=== PATIENT | male | born 1965 | race Caucasian/White ===

== ENCOUNTER 2022-12-08 13:03 | Outpatient (CLI) | payer BC, SELFPAY ==
--- NOTE | 2022-12-08 13:42 | W.ANESCHARGE ---
Anesthesia Charges Start Date/Time Anesthesia Start Date: 12/08/22 Anesthesia Start Time: 14:02 Stop Date/Time Anesthesia Stop Date: 12/08/22 Anesthesia Stop Time: 14:30
--- NOTE | 2022-12-08 14:32 | W.ANESCHARGE ---
Anesthesia Charges Start Date/Time Anesthesia Start Date: 12/08/22 Anesthesia Start Time: 14:02 Stop Date/Time Anesthesia Stop Date: 12/08/22 Anesthesia Stop Time: 14:30
== END 2022-12-08 13:04 | disposition home or self-care (01) ==
LOC: OP CLINIC 13:06
PROVIDERS: PCP Family Medicine; Visit Provider Internal Medicine Gastroenterology
DX: Z12.11 Encounter for screening for malignant neoplasm of colon (principal); K63.5 Polyp of colon; K57.30 Diverticulosis of large intestine without perforation or abscess without bleeding
CPT/HCPCS: 45385; 811; 88305; J2704

== ENCOUNTER 2024-09-17 11:08 | Emergency (ER) | payer BC, SELFPAY ==
[2024-09-17 11:10] VITALS: BP 167/84; PULSE 74; RESP 18; TEMP 36.6; O2SAT 95; BMI 34.5
--- OUTSIDE RECORDS SUMMARY | 2024-09-17 11:10 | XMS_ITS | Clinical Summary ---
Author Organization [employer] [facility] Address [address] [place] [id number] Care Team Providers [facility] [employer] Paralegal Name Role Phone Danie Cooper MD Primary Care Provider Allergies Active Allergy Reactions Criticality Noted Date Comments Atorvastatin Myalgia 10/12/2015 Leg pain on 80mg, trial of 40mg Medications aspirin (ECOTRIN) 81 mg enteric coated tabletIndications: ASCVD (arteriosclerotic cardiovascular disease) Take 1 tablet by mouth once daily with a meal. 0 09/12/19 16 Active CPAPIndications:Ob structive sleep apnea CPAP, heated humidifier, mask, headgear, filters and tubing. Pressure: 9 cm/H2O Length of Need: 99 Dispense supplies needed by patient. 1 unit 0 10/03/19 16 Active cholecalciferol, Vitamin D3, 5,000 unit tab tablet Take by mouth once daily. Active lisinopriL (PRINIVIL; ZESTRIL) 10 mg tabletIndications: Essential hypertension, benign Take 1 Tablet (10 mg) by mouth once daily. 90 Tablet 1 03/31/19 25 Active metoprolol succinate (TOPROL XL) 100 mg Sustained-Release tabletIndications: Essential hypertension, benign Take 1 Tablet (100 mg) by mouth once daily. 90 Tablet 1 03/31/19 25 Active metFORMIN (GLUCOPHAGE XR) 500 mg Extended-Release tabletIndications: Type 2 diabetes mellitus with other specified complication, without long-term current use of insulin (HC) Take 2 Tablets (1,000 mg) by mouth two times daily with meals. 360 Tablet 1 04/01/19 25 Active omeprazole 40 mg Delayed-Release capsuleIndications :Chronic GERD TAKE 1 CAPSULE BY MOUTH DAILY 90 Capsule 09/17/19 25 Active rosuvastatin 40 mg tabletIndications: ASCVD (arteriosclerotic cardiovascular disease) TAKE 1 TABLET BY MOUTH ONCE DAILY 90 Tablet 09/17/19 25 Active omeprazole (PRILOSEC) 40 mg Delayed-Release capsuleIndications :Chronic GERD Take 1 Capsule (40 mg) by mouth once daily. 90 Capsule 1 03/31/19 25 025 Discontinued rosuvastatin (CRESTOR) 40 mg tabletIndications: ASCVD (arteriosclerotic cardiovascular disease) Take 1 Tablet (40 mg) by mouth once daily. 90 Tablet 1 03/31/19 25 025 Discontinued Active Problems Problem Noted Date Diagnosed Date Colon polyp 12/10/2022 Overview (12/10/2022): Colonoscopy 11/2022 7-TA, repeat in 3 years, propofol Hyperlipidemia 09/19/2022 NAFLD (nonalcoholic fatty liver disease) 023 Obesity 09/19/2022 Tobacco abuse 09/19/2022 Type 2 diabetes mellitus treated without insulin 09/19/2022 LEMUEL 03/10/2012 AHI-35 03/21/2012 Hyperplastic colon polyp 02/16/2012 Overview (02/16/2012): Colonoscopy 01/2012 polyps repeat in 10 years Essential hypertension, benign 03/16/2009 Migraines 03/16/2009 [place]o esophagus 03/16/2009 Overview (03/12/2010): EGD 02/2010 [place] Toro's, repeat EGD in 3 years CAD, [place] 2008, s/p SOLOMON. Overview (03/17/2009): -NSTEMI 03/15/2009. Coronary angiogram 03/16/2009: SOLOMON pLAD, PTCA D1. Plavix x1 year minimum, prefer 2 years Resolved Problems Problem Noted Date Diagnosed Date Resolved Date Impaired fasting glucose 01/02/2012 Vitamin D deficiency 04/21/2011 023 Rectal bleeding 11/08/2010 09/19/2022 Unspecified hemorrhoids with other complication 11/08/2010 09/19/2022 Allergic reaction caused by a drug 04/20/2009 09/19/2022 Other chest pain 03/16/2009 09/19/2022 Smoking 03/16/2009 09/19/2022 Overview (03/26/2009): Quit on 03/15/09 GI (gastrointestinal bleed) 09/19/2022 Overview (03/17/2009): -blood in stool x3 weeks on admission 03/15/2009 *GI consult recommended elective colonoscopy and UGI scope in next few weeks *now on Plavix x1 year minimum, prefer 2 years for SOLOMON placement 03/16/2009 Encounters Date Type Department Care Team Description 09/15/2024 Refill [facility] [address] [place] [address] Danie Cooper MD Refill Request (Omeprazole, Rosuvastatin) from Last 3 Months Immunizations Immunization Administration Dates Next Due COVID-19 VACCINE SPIKEVAX (M ODERNA 50MCG/0.5ML) 12YO+ PFS 03/31/2024,07/10/2023 COVID-19 vaccine ([employer] 30mcg/0.3mL) PF, MDV 08/26/2021,02/23/2021,07/09/2020,2020 INFLUENZA, IIV3 PF (AGE >= 6 MO) 03/31/2024 Influenza, IIV4 12/29/2020,,01/10/2019,2017,01/15/2015,02/14/2014 Pneumococcal Poly,23-Valent (Pneumovax) 12/29/2020 Pneumococcal conj 13-Valent (Prevnar 13) 07/01/2022 Td (Age >=7 Years) 06/29/1997 Tdap 01/17/2020,08/30/2009 Zoster (Shingrix-RZV, recombinant) 12/25/2017, Zoster (Zostavax-ZVL, live) 02/14/2014 Family History Medical History Relation Name Comments Hypertension Brother 1 Hypertension Brother 2 Cancer-prostate Father Diabetes Father Hypertension Father Cancer-colon Neg. 1 Diabetes Neg. 2 Heart Disease Neg. 3 Relation Name Status Comments Brother 1 Brother 2 Father Neg. 1 Neg. 2 Neg. 3 Social History Tobacco Use Types Packs/Day Years Used Date Smoking Tobacco: Every Day Cigarettes 1 46.5 Started: 1979 Smokeless Tobacco: Never Tobacco Cessation:Ready to Q uit: No; Counseling Given: No Comments:.5 pack a day Alcohol Use Standard Drinks/Week Comments Yes 2 (1 standard drink = 0.6 oz pur e alcohol) social/couple times a week Social Connections Answer Date Recorded Do you often feel lonely or isolated from those around you? 0 03/28/2024 Financial Resource Strain Answer Date R ecorded Difficulty of Paying Living Expenses 3 03/28/2024 Difficulty of Paying Living Expenses Not on file 03/28/2024 Food Insecurity Answer Date Recorded Do you worry your food will run out before you are able to buy more? 1 03/28/2024 Transportation Needs Answer Date Record ed Does lack of transportation keep you from medica l appointments? 1 03/28/2024 Does lack of transportation keep you from work, meetings or getting things that you need? 1 03/28/2024 Housing Stability Answer Date Recorded What is your housing situation today? 1 03/28/2024 Utilities Answer Date Recorded Do you have trouble paying f or utilities (for example, heat, electricity, water, phone)? 1 03/28/2024 Sex and Gender Information Value Date Recorded Sex Assigned at Not on file Legal Sex Male 6:21 AM ATTRACTIONS ASSOCIATE Gender Identity Not on file Sexual Orientation Not on file Obstetrics History Last Filed Vital Signs Vital Sign Reading Time Taken Comments Blood Pressure 130/85 03/31/2024 4:09 PM ATTRACTIONS ASSOCIATE Pulse 78 03/31/2024 4:09 PM ATTRACTIONS ASSOCIATE Temperature 36.4 C (97.5 F) 11/17/2022 8:20 AM CDT Respiratory Rate 18 03/17/2009 7:00 AM ATTRACTIONS ASSOCIATE Oxygen Saturation 95% 03/31/2024 4:09 PM ATTRACTIONS ASSOCIATE Inhaled Oxygen Concentration - - Weight 99.6 kg (219 lb 9.6 oz) 03/31/2024 4:09 P M ATTRACTIONS ASSOCIATE Height 167.1 cm (5' 5.79) 03/31/2024 4:09 PM CS T Body Mass Index 35.67 03/31/2024 4:09 PM ATTRACTIONS ASSOCIATE Plan of Treatment Health Maintenance Due Date Last Done Comments Depression screening for age 12+ 09/11/2016 09/12/2015, 05/11/[address] (for lung CA) age 50-80 10/18/2023 10/17/2022 RSV vaccine for adults or (1 - Risk 60-74 years 1-dose series) 2024 BMI (ht and wt on same day) for age 18+ 03/31/2025 03/31/2024, 07/10/2023, 11/17/2022, Additional history exists Pneumococcal series for age 50+ (3 of 3 - PCV20 or PCV21) 07/02/2027 07/01/2022, 12/29/2020 Lipids for age 45-75 03/31/2029 03/31/2024, 07/10/2023, 09/19/2022, Additional history exists Tetanus booster 01/16/2030 01/17/2020, 08/21, 06/29/1997 Colonoscopy through age 75 12/08/203212/08, 12/08/2022, 12/08/2022, Additional history exists Zoster (shingles) series for age 50+ Completed 12/25/2017, 10/26/2017, 02/14/2014 Tdap Completed 01/17/2020, 08/30/2009 HIV for age 15-65 Completed 09/19/2022 Hepatitis C screening for age 18-79 Completed 09/19/2022 COVID-19 vaccine series Completed 03/31/19, 07/10/2023, 08/26/2021, Additional history exists Influenza Vaccine Completed 03/31/2024, , 12/17/2019, Additional history exists Hepatitis B series for 19+ Aged Out N o longer eligible based on patient's age to complete this topic Procedures Procedure Name Priority Date/Time Associated Diagnosis Comments LIPID PANEL W REFLEX MEASURED LDL Routine 03/31/2024 4:48 PM ATTRACTIONS ASSOCIATE Type 2 diabetes mellitus with other specified complication, without long-term current use of insulin (HC) COLONOSCOPY SCREENING Routine 12/08/2022 8:02 AM CDT Screening for colon cancer CT CHEST SCREENING LOW DOSE WO CONTRAST Routine 10/17/2022 7:40 AM CDT Personal history of tobacco use, presenting hazards to health LC HIV-1/O/2, 4TH GENERATION Routine 09/19/2022 8:37 AM CDT Screening for HIV (human immunodeficiency virus) LC HCV ANTIBODY RFX TO QUANT PCR Routine 09/19/2022 8:37 AM CDT Need for hepatitis C screening test from Last 3 Months or Most Recently Relevant to Health Maintenance Results * (ABNORMAL) LIPID PANEL W REFLEX MEASURED LDL (03/31/2024 4:48 PM ATTRACTIONS ASSOCIATE) Pathologist [facility] CHOLESTEROL, TOTAL 130 <200 mg/dL [facility] HDL CHOLESTEROL 36(L) > OR = 40 mg/dL [facility] TRIGLYCERIDES 382(H) <150 mg/dL [facility] Comment: If a non-fasting specimen was collected, consider repeat triglyceride testing on a fasting specimen if clinically indicated. Delma et al. J. of Clin. Lipidol. 2015;9:129-169. LDL-CHOLESTEROL 54 mg/dL (calc) [facility] Comment: Reference range: <100 Desirable range <100 mg/dL for primary prevention; <70 mg/dL for patients with CHD or diabetic patients with > or = 2 CHD risk factors. LDL-C is now calculated using the Felice-Ansari calculation, which is a validated novel method providing better accuracy than the Friedewald equation in the estimation of LDL-C. Felice JIMENEZ et al. LUCAS. 2013;310(19): 0677-9644 (http://education.[employer]/faq/LSA080) CHOL/HDLC RATIO 3.6 <5.0 (calc) [facility] NON HDL CHOLESTEROL 94 <130 mg/dL (calc) [facility] Comment: For patients with diabetes plus 1 major ASCVD risk factor, treating to a non-HDL-C goal of <100 mg/dL (LDL-C of <70 mg/dL) is considered a therapeutic option. Blood BLOOD SPECIMEN / Unknown 03/31/2024 4:48 PM ATTRACTIONS ASSOCIATE 03/31/2024 4:49 PM ATTRACTIONS ASSOCIATE Danie Cooper MD CHEMISTRY Final Result [facility] [address] [place] [address], [place] [phone] [facility] [address] [place] [address] * SCAN-COLONOSCOPY (12/08/2022 12:00 AM CDT) Scanner OTHER Final Result * CT CHEST SCREENING LOW DOSE WO CONTRAST (10/17/2022 7:40 AM CDT) Anatomical Region Laterality Modality Computed Tomogra phy Impressions 10/17/2022 2:22 PM CDT 1. 7.6 millimeter left lower lobe pulmonary nodule. 2. The visualized abdominal aorta measures up to 3.2 cm. Ultrasound aorta recommended for further evaluation. LUNG-RADS CATEGORY 3: Probably benign. RADIOLOGIST RECOMMENDATION: Low-dose CT chest in 6 months. Please note that all CT scans at this facility use dose modulation, iterative reconstruction and/or weight-based dosing when appropriate to reduce radiation dose to as low as reasonably achievable. Dictated by: Phillip Frazier MD @10/17/2022 1:23:58 PM / CRL:jj Narrative 10/17/2022 2:22 PM CDT For Patients: As a result of the 21st Century Cures Act, medical imaging exams and procedure reports are released immediately into your electronic medical record. You may view this report before your referring provider. If you have questions, please contact your health care provider. CT CHEST SCREENING LOW-DOSE WITHOUT CONTRAST, 10/17/2022 INDICATION: Lung cancer screening. History of smoking. High-risk patient with greater than 20 pack-year smoking history. TECHNIQUE: Low-dose lung cancer screening non-contrast CT chest. Dose reduction techniques were used. COMPARISON: None. FINDINGS: NODULES: 7.6 millimeter noncalcified nodule left lower lobe, 5/115. LUNGS AND PLEURA: Emphysema. No infiltrate. MEDIASTINUM: Atherosclerotic changes. No adenopathy. CORONARY ARTERY CALCIFICATION: Present. LIMITED UPPER ABDOMEN: The abdominal aorta measures up to 3.2 cm, incompletely visualized. MUSCULOSKELETAL: No fracture is present. Danie Cooper MD CT Final Result * LC HCV ANTIBODY RFX TO QUANT PCR (09/19/2022 8:37 AM CDT) [facility] HCV Ab Non Reactive Non Reactive 09/23/2022 11:08 AM CDT [facility] ([facility]) Blood BLOOD SPECIMEN / Unknown Venipuncture / Unknown 09/19/2022 8:37 AM CDT 09/19/2022 8:40 AM CDT [facility] ([facility]) - 09/23/2022 11:08 AM CDT Performed at: [address] [place] [id number] Chief Counsel: Joseph Bermudez MD, Phone: [phone] Danie Cooper MD LABORATORY Final Result [facility] ([facility]) [address] [place], [place] [id number], * LC HIV-1/O/2, 4TH GENERATION (09/19/2022 8:37 AM CDT) [facility] HIV Scr 4th Gen Non Reactive Non Reactive 09/23/2022 11:08 AM CDT [facility] ([facility]) Comment: HIV Negative HIV-1/HIV-2 antibodies and HIV-1 p24 antigen were NOT detected. There is no laboratory evidence of HIV infection. Blood BLOOD SPECIMEN / Unknown Venipuncture / Unknown 09/19/2022 8:37 AM CDT 09/19/2022 8:40 AM CDT [facility] ([facility]) - 09/23/2022 11:08 AM CDT Performed at: 01 - [facility] [address] [place], [place] [id number] Chief Counsel: Joseph Bermudez MD, Phone: [phone] us Danie Cooper MD LABORATORY Final Result [facility] ([facility]) [address] [place] [address], from Last 3 Months or Most Recently Relevant to Health Maintenance Insurance [facility] Advance Directives * Full Code (Latest Code Status on File) Date Activated Date Inactivated Comments 03/15/2009 9:38 PM 03/17/2009 1:41 PM Care Teams [employer] Paralegal Relationship Specialty Start Date End Date [place] [address] [address] PCP - General Family Practice 05/10/15
--- NOTE | 2024-09-17 11:21 | CRLHL7_ITS ---
For Patients: As a result of the Century Cures Act, medical imaging exams and procedure reports are released immediately into your electronic medical record. You may view this report before your referring provider. If you have questions, please contact your health care provider. INDICATION: Chest pressure. COMPARISON: 01/27/2010. FINDINGS: Heart size is magnified by the AP technique there is atherosclerotic calcification within the aortic arch. There is mild linear scarring the left lung base. The lungs are otherwise clear. The pulmonary vasculature and pleural surfaces appear normal. IMPRESSION: No acute process identified. Dictated by Ronnie Dan MD @ 09/17/2024 12:07:37 PM (Electronically Signed)
--- NOTE | 2024-09-17 11:23 | ED.CHESTPAIN ---
HPI - Chest Pain General Chief Complaint: Chest Pain Stated Complaint: Pressure in chest, pain under rib cage Time Seen by Provider: 09/17/24 11:18 History of Present Illness HPI narrative: PATIENT IS A 59-YEAR-OLD GENTLEMAN WHO HAS HISTORY OF CORONARY DISEASE 15 YEARS AGO WITH STENTING X2 STATUS POST MYOCARDIAL INFARCTION WHO PRESENTS WITH THE INTERMITTENT CHEST PAIN FOR THE LAST WEEK. THE PAIN WORSENED LAST NIGHT APPROXIMATELY 15 HOURS AGO. THE PAIN IS SUBSTERNAL AND RADIATES TO THE LOWER CHEST. HE HAS HAD NO NAUSEA NO VOMITING MILD DIAPHORESIS GENERAL MALAISE BODY ACHES AND FATIGUE. HE STILL IS HAVING APPROXIMATELY 3/10 CHEST PAIN UPON ARRIVAL. NO OTHER SIGNIFICANT SYMPTOMS. Related Data Home Medications ?Medication ?Instructions ?Recorded ?Confirmed aspirin 81 mg chewable tablet 81 mg PO DAILY 09/17/24 09/17/24 (Aspirin Childrens) lisinopril 10 mg tablet 10 mg PO DAILY 09/17/24 09/17/24 metformin 500 mg tablet,extended 1,000 mg PO BID 09/17/24 09/17/24 release 24 hr metoprolol succinate 100 mg 100 mg PO DAILY 09/17/24 09/17/24 tablet,extended release 24 hr omeprazole 40 mg capsule,delayed 40 mg PO DAILY 09/17/24 09/17/24 release rosuvastatin 40 mg tablet 40 mg PO DAILY 09/17/24 09/17/24 Allergies Allergy/AdvReac Type Severity Reaction Status Date / Time atorvastatin Allergy Verified 09/17/24 11:17 Review of Systems Status of ROS Reports: 10 or more systems reviewed and unremarkable except as noted in History and below PFSH PFS Social History Smoking Status: Current every day smoker What tobacco products do you use: cigarettes How often do you have a drink containing alcohol: monthly or less AUDIT-C Alcohol total score: 1 Non-prescribed substance use: denies use Exam Narrative Exam Narrative: EXAM GENERAL: Patient appears comfortable and well. EYES: No scleral icterus. ENT: Tympanic membranes and oropharynx normal. THYROID: no thyroid nodules or thyromegaly. LYMPH: No supraclavicular or cervical lymphadenopathy. SKIN: Visible skin seen during exam normal or with benign process only. EXT: No dependent lower extremity pedal edema. HEART: Regular rate and rhythm with no murmurs, rubs, or gallops. LUNGS: Clear to auscultation bilaterally with no crackles or wheezes. ABD: Soft, non tender, non distended. PSYCH: Good eye contact, speech is not pressured. Const Vital Signs, click to edit/add: Vital Signs - 24 hr 09/17/24 11:10 Temperature 97.9 F Pulse Rate [Right Pulse Oximeter] 74 Respiratory Rate 18 Blood Pressure [Right Upper Arm] 167/84 H Pulse Oximetry 95 Oxygen Delivery Method Room Air Course Course ED Course: EKG troponin D-dimer chest x-ray electrolytes CBC A1c pending. Vital Signs Vital signs: Initial Vital Signs Temperature 97.9 F 09/17/24 11:10 Temperature Source Temporal Artery Scan 09/17/24 11:10 Pulse Rate 74 09/17/24 11:10 Pulse Rhythm Regular 09/17/24 11:10 Pulse Strength 3+ Normal 09/17/24 11:10 Respiratory Rate 18 09/17/24 11:10 Blood Pressure 167/84 H 09/17/24 11:10 Blood Pressure Mean 111 H 09/17/24 11:10 Blood Pressure Position Sitting 09/17/24 11:10 Pulse Oximetry 95 09/17/24 11:10 Oxygen Delivery Method Room Air 09/17/24 11:10 Vital Signs Temperature 97.9 F 09/17/24 11:10 Pulse Rate 74 09/17/24 11:10 Respiratory Rate 18 09/17/24 11:10 Blood Pressure 167/84 H 09/17/24 11:10 Pulse Oximetry 95 09/17/24 11:10 Oxygen Delivery Method Room Air 09/17/24 11:10 Temperature 97.9 F 09/17/24 11:10 Pulse Rate 74 09/17/24 11:10 Respiratory Rate 18 09/17/24 11:10 Blood Pressure 167/84 H 09/17/24 11:10 Pulse Oximetry 95 09/17/24 11:10 Oxygen Delivery Method Room Air 09/17/24 11:10 MDM - Chest Pain MDM Narrative Medical decision making narrative: Patient presents with a chest pain intermittently for the last 2 weeks. He is having chest pain when he had his EKG which showed no acute abnormalities. Troponin D-dimer CBC comprehensive metabolic panel chest x-ray all negative upon my review. This time I did recommend a stress test at through his primary care physician's office. Differential diagnosis includes but not limited to unstable angina acute myocardial infarction pericarditis myocarditis reflux pulmonary embolism pleurisy pleural effusions. Lab Data Labs: Lab Results 09/17/24 Range/Units 11:49 WBC 10.47 (4.50-11.00) K/uL RBC 5.18 (4.30-5.90) m/uL Hgb 15.6 (13.5-17.5) gm/dL Hct 46.1 (37.0-53.0) % MCV 89 (80-100) fL MCH 30 (26-34) pg MCHC 34 (32-36) gm/dL RDW Coeff of Ranjit 13.1 (11.5-15.5) % Plt Count 199 (140-440) K/uL Neut % (Auto) 64.4 (42.0-72.0) % Lymph % (Auto) 23.5 (20-44) % Forrest % (Auto) 7.9 (0.0-11.0) % Eos % (Auto) 3.0 (0.0-7.0) % Baso % (Auto) 0.5 (0.0-3.0) % Neut # (Auto) 6.75 (1.7-7.0) K/uL Lymph # (Auto) 2.46 (0.90-2.90) K/uL Forrest # (Auto) 0.80 (0.00-0.90) K/UL Eos # (Auto) 0.31 (0.00-0.50) K/uL Baso # (Auto) 0.05 (0.00-0.30) K/uL Abs Immat Gran (auto) 0.07 (0.00-0.30) K/uL Imm/Tot Granulo (auto) 0.7 % D-Dimer Quant (PE/DVT) < 0.27 (0.00-0.50) ug/ml Sodium 136 (135-149) mmol/L Potassium 3.8 (3.6-5.1) mmol/L Chloride 101 (96-114) mmol/L Carbon Dioxide 24 (20-32) mmol/L Anion Gap 11 (7-15) mEq/L BUN 13 (7-30) mg/dL Creatinine 0.6 (0.5-1.5) mg/dL Estimated Creat Clear 122.41 Estimated GFR 111 ml/min Glucose 174 H (60-115) mg/dL Hemoglobin A1c 8.3 H (0-5.6) % Calcium 9.4 (8.4-10.6) mg/dL Total Bilirubin 0.6 (0.1-1.5) mg/dL AST 29 (12-35) U/L ALT 34 (4-50) U/L Alkaline Phosphatase 64 (40-150) U/L Troponin I < 0.01 (0.01-0.04) ng/mL Total Protein 7.0 (6.0-8.3) g/dL Albumin 4.3 (3.3-5.0) g/dL Discharge Plan Discharge Clinical Impression: Chest pain Patient Disposition: Home, Self-Care Condition: Stable Activity Level: No Restrictions Discharge Diet: Regular Discharge Comment: Contact your doctor to schedule stress echocardiogram Return to the ER if symptoms worsen.
[2024-09-17 12:02] LABS: Basophils Absolute Auto 0.05 K/uL (0.00-0.30); Basophils Percent Auto 0.5 % (0.0-3.0); Eosinophils Absolute Auto 0.31 K/uL (0.00-0.50); Hematocrit 46.1 % (37.0-53.0); Hemoglobin* 15.6 gm/dL (13.5-17.5); Immature Granulocytes Abs Auto 0.07 K/uL (0.00-0.30); Immature Granulocytes Pct Auto 0.7 %; Lymphocytes Absolute Auto 2.46 K/uL (0.90-2.90); Lymphocytes Percent Auto 23.5 % (20-44); Mean Corpuscular HGB Conc 34 gm/dL (32-36); Mean Corpuscular Hemoglobin 30 pg (26-34); Mean Corpuscular Volume 89 fL (80-100); Monocytes Percent Auto 7.9 % (0.0-11.0); Neutrophils Absolute Auto 6.75 K/uL (1.7-7.0); Neutrophils Percent Auto 64.4 % (42.0-72.0); Platelet Count* 199 K/uL (140-440); RDW Coefficient of Variation % 13.1 % (11.5-15.5); Red Blood Count 5.18 m/uL (4.30-5.90); Slide Review Reflex No; White Blood Count* 10.47 K/uL (4.50-11.00)
[2024-09-17 12:10] LABS: Albumin* 4.3 g/dL (3.3-5.0); Chloride* 101 mmol/L (96-114); Sodium* 136 mmol/L (135-149)
[2024-09-17 12:11] LABS: Potassium* 3.8 mmol/L (3.6-5.1)
[2024-09-17 12:12] LABS: Hemoglobin A1C* 8.3 % (0-5.6)
[2024-09-17 12:13] LABS: Alanine Aminotransferase* 34 U/L (4-50); Alkaline Phosphatase* 64 U/L (40-150); Anion Gap 11 mEq/L (7-15); Aspartate Amino Transferase* 29 U/L (12-35); Bilirubin Total* 0.6 mg/dL (0.1-1.5); Blood Urea Nitrogen* 13 mg/dL (7-30); Carbon Dioxide* 24 mmol/L (20-32); Creatinine* 0.6 mg/dL (0.5-1.5); Est. Creatinine Clearance* 122.41; Estimated Glomerular Filt Rate 111 ml/min
[2024-09-17 12:14] LABS: Calcium* 9.4 mg/dL (8.4-10.6); Glucose* 174 mg/dL (60-115)
[2024-09-17 12:23] LABS: D Dimer Quantitative* < 0.27 ug/ml (0.00-0.50)
[2024-09-17 12:25] LABS: Troponin I* < 0.01 ng/mL (0.01-0.04)
== END 2024-09-17 12:54 | disposition home or self-care (01) ==
LOC: ED 12:04 → SS 12:33 → ED 12:52
PROVIDERS: Emergency Provider Internal Medicine; PCP Family Medicine
DX: R07.9 Chest pain, unspecified (principal)
CPT/HCPCS: 36415; 71045; 80053; 83036; 84484; 85025; 85379; 93005; 99283; 99284